=== PATIENT | female | born 1975 ===

== ENCOUNTER 2021-07-17 18:00 | Observation (INO) ==
[2021-07-17] MEDS ORDERED: Ketorolac 30 MG/ML VIAL IVP ONE (20:44)
[2021-07-17] MEDS ORDERED: Nitroglycerin 1 INCH/GM PACKET TP ONE (21:16)
[2021-07-17 21:19] LABS: Basophils % 0.2 %; Hematocrit 35.4 % (35.3-44.9); Hemoglobin 10.9 g/dL (11.5-15.4); Immature Granulocytes % 0.4 % (0-4); Lymphocytes # 2.2 K/mcL (0.6-4.6); Lymphocytes % 20.2 %; Mean Corpuscular HGB Conc 30.8 g/dL (31.6-35.5); Mean Corpuscular Hemoglobin 27.4 pg (28.0-33.3); Mean Corpuscular Volume 88.9 fL (83.0-100.0); Monocytes # 0.4 K/mcL (0.0-1.3); Monocytes % 3.6 %; Neutrophils # 8.1 K/mcL (1.6-8.9); Platelet Count 346 K/mcL (140-400); Red Blood Count 3.98 M/mcL (3.82-4.97); Red Cell Distribution Width 13.6 % (11.5-14.5); Segmented Neutrophils % 75.6 %; White Blood Count 10.7 K/mcL (4.3-11.1)
[2021-07-17 21:20] LABS: INR 1.2
[2021-07-17 21:23] LABS: Activated Partial Thrombo Time 28.6 Seconds (26.0-36.0)
[2021-07-17 21:32] LABS: Troponin I < 0.03 ng/mL (< 0.04)
[2021-07-17 21:33] LABS: BUN/Creatinine Ratio 16 (6-26); Blood Urea Nitrogen 13 mg/dL (6-20); Calcium 8.5 mg/dL (8.6-10.3); Carbon Dioxide 27 mEq/L (23-29); Chloride 105 mEq/L (98-107); Glucose 98 mg/dL (70-105); Osmolality,Calculated 286 (280-300); Potassium 4.2 mEq/L (3.5-5.1); Sodium 138 mEq/L (136-145); eGFR For African Americans > 60 (> 60); eGFR For Non-African Americans > 60 (> 60)
[2021-07-17] MEDS ORDERED: Naloxone 0.4 MG/ML INJ IVP PRN (23:14)
[2021-07-18] MEDS ORDERED: Naloxone 0.4 MG/ML INJ IVP PRN (00:07)
[2021-07-18] MEDS ORDERED: Nitroglycerin 0.4 MG TAB.SUBL SL PRN (14:51)
[2021-07-19] MEDS ORDERED: *HR* Enoxaparin 40 MG/0.4 ML SYRINGE SQ SCH (06:00)
[2021-07-19 06:41] VITALS: BP 114/69; PULSE 67; RESP 17; TEMP 98; O2SAT 99
[2021-07-19 07:53] LABS: Chol/HDL Ratio 3.3 (0-4.9)
[2021-07-19] MEDS ORDERED: Aspirin Enteric Coated 81 MG Tablet PO SCH (09:00)
== END 2021-07-19 14:10 | disposition home or self-care (01) ==
LOC: INPPIK 18:00 → EMEROOPIK 18:00 → INPPIK 07-18 00:05
PROVIDERS: ADMIT Internal Medicine; ATTEND Family Medicine